=== PATIENT | female | born 1980 | race Caucasian/White ===

== ENCOUNTER 2017-06-30 20:06 | Emergency (ER) | payer SELFPAY ==
[~2017-06-30] VITALS: Ht 177.8 cm; Wt 68.0 kg
--- NOTE | 2017-06-30 20:20 | NUR ---
[facility] AT BEDSIDE FOR REPORT
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
[2017-06-30] MEDS ORDERED: LORAZEPAM 1 MG TABLET ONE (20:23)
[2017-06-30] MEDS ORDERED: LORAZEPAM 1 MG TABLET PO ONE (20:30)
--- NOTE | 2017-06-30 21:47 | NUR ---
Per [facility], they are going to take patient to station for further investigation.
--- NOTE | 2017-06-30 21:47 | NUR ---
Patient discharged in stable condition. Written and verbal after care instructions given. Patient verbalizes understanding of instruction. Patient is ambulatory with steady gait, no further complaints.
[2017-06-30 21:48] VITALS: BP 137/67
== END 2017-06-30 21:48 | disposition home or self-care (01) ==
LOC: ER 20:08
DX: T76.21XA Adult sexual abuse, suspected, initial encounter (principal); F41.9 Anxiety disorder, unspecified; Z85.038 Personal history of other malignant neoplasm of large intestine
CPT/HCPCS: A4606; Z7610